=== PATIENT | male | born 1975 | race Caucasian/White ===

== ENCOUNTER 2017-09-24 10:59 | Inpatient (IN) | payer OTHER ==
[2017-09-24] MEDS ORDERED: Albuterol/Ipratropium 3.0-0.5 MG/3 ML Neb Soln NEB ONE (11:13)
--- NOTE | 2017-09-24 11:20 | EDM.PDOC ---
ED HPI GENERAL MEDICAL PROBLEM - General Chief Complaint: Respiratory Problem Stated Complaint: SHORTNESS OF BREATHE, COUGH Time Seen by Provider: 09/24/17 11:15 Source of Information: Reports: Patient History Limitations: Reports: No Limitations - History of Present Illness INITIAL COMMENTS - FREE TEXT/NARRATIVE: Patient is a 42-year-old who states that for the last 2-3 days he's been having productive cough progressively getting worse, yesterday described that he bended over to tie his shoelace and noted that he was lightheaded and felt extremely weak like he was going to pass out, patient admits that his productive cough has become bloody at this point described as rust colo. Onset: Gradual Duration: Day(s):, Getting Worse Location: Reports: Chest Quality: Reports: Sharp Severity: Moderate (Worse with coughing) Improves with: Reports: Other (Positioning) Worsens with: Reports: Other (Leaning forward and coughing) Context: Reports: Other Associated Symptoms: Reports: Chest Pain Right Thoracic Pain Score (Numeric/FACES): 5 - Related Data Allergies Allergy/AdvReac Type Severity Reaction Status Date / Time No Known Allergies Allergy Verified 04/30/15 03:13 Home Meds: Home Meds Aspirin [Ecotrin] 81 mg PO DAILY 09/24/17 [History] Lisinopril/Hydrochlorothiazide [Lisinopril-Hctz 20-12.5 mg Tab] 1 each PO DAILY 09/24/17 [History] Metoprolol Tartrate 25 mg PO DAILY 09/24/17 [History] atorvaSTATin [Lipitor] 40 mg PO BEDTIME 09/24/17 [History] Past Medical History - Past Surgical History Other Musculoskeletal Surgeries/Procedures:: Knee Muscle Surgery Social & Family History - Tobacco Use Smoking Status *Q: Current Every Day Smoker Years of Tobacco use: 20 Packs/Tins Daily: 1.5 Second Hand Smoke Exposure: No - Recreational Drug Use Recreational Drug Use: No ED ROS GENERAL - Review of Systems Review Of Systems: See Below Constitutional: Reports: Weakness, Fatigue HEENT: Reports: No Symptoms Respiratory: Reports: Shortness of Breath, Wheezing Cardiovascular: Reports: No Symptoms Endocrine: Reports: No Symptoms GI/Abdominal: Reports: No Symptoms : Reports: No Symptoms Musculoskeletal: Reports: No Symptoms Skin: Reports: No Symptoms Neurological: Reports: No Symptoms Psychiatric: Reports: No Symptoms Hematologic/Lymphatic: Reports: No Symptoms ED EXAM, GENERAL - Physical Exam Exam: See Below Exam Limited By: No Limitations General Appearance: Alert, WD/WN, No Apparent Distress Ears: Normal External Exam, Normal Canal, Hearing Grossly Normal, Normal TMs Ear Exam: Bilateral Ear: Auricle Normal, Canal Normal, TM normal Nose: Normal Inspection, Normal Mucosa, No Blood Throat/Mouth: Normal Inspection, Normal Lips, Normal Teeth, Normal Gums, Normal Oropharynx, Normal Voice, No Airway Compromise Head: Atraumatic, Normocephalic Neck: Normal Inspection, Supple, Non-Tender, Full Range of Motion Respiratory/Chest: No Respiratory Distress, Lungs Clear, Normal Breath Sounds, No Accessory Muscle Use, Chest Non-Tender Cardiovascular: Normal Peripheral Pulses, Regular Rate, Rhythm, No Edema, No Gallop, No JVD, No Murmur, No Rub GI/Abdominal: Normal Bowel Sounds, Soft, Non-Tender, No Organomegaly, No Distention, No Abnormal Bruit, No Mass (Male) Exam: Deferred Rectal (Males) Exam: Deferred Back Exam: Normal Inspection, Full Range of Motion, NT Extremities: Normal Inspection, Normal Range of Motion, Non-Tender, Normal Capillary Refill, No Pedal Edema Neurological: Alert, Oriented, CN II-XII Intact, Normal Cognition, Normal Gait, Normal Reflexes, No Motor/Sensory Deficits Psychiatric: Normal Affect, Normal Mood Course - Vital Signs Last Recorded V/S: Last Vital Signs Temp 97 F 09/24/17 11:00 Pulse 115 H 09/24/17 11:00 Resp 20 09/24/17 11:00 BP 112/91 H 09/24/17 11:00 Pulse Ox 82 L 09/24/17 11:00 - Orders/Labs/Meds Orders: Active Orders 24 hr Category Date Time Status RT Aerosol Therapy [RC] ASDIRECTED Care 09/24/17 11:14 Ordered Albuterol/Ipratropium [DuoNeb 3.0-0.5 MG/3 ML] Med 09/24/17 11:13 Once 3 ml NEB ONETIME ONE Departure - Departure Time of Disposition: 11:42 Disposition: Admitted As Inpatient 66 Clinical Impression: Pneumonia, COPD (chronic obstructive pulmonary disease) - Discharge Information Referrals: Pilo Srinivasan PA [Primary Care Provider] - Care Plan Goals: Patient will be admitted to the hospital for antibiotic and steroid therapy. Please use ER note as H&P - Problem List & Annotations (1) Pneumonia SNOMED Code(s): 959595975 Code(s): J18.9 - PNEUMONIA, UNSPECIFIED ORGANISM Status: Acute Annotation /Comment:: Patient will be admitted for antibiotic therapy at this time has been hypoxic with oxygen in the low 80s does not improve with albutero Qualifiers: Pneumonia type: due to unspecified organism Laterality: bilateral Lung location: lower lobe of lung Qualified Code(s): J18.9 - Pneumonia, unspecified organism (2) Chronic obstructive pulmonary disease with hypoxia SNOMED Code(s): 54156300 Code(s): J44.9 - CHRONIC OBSTRUCTIVE PULMONARY DISEASE, UNSPECIFIED; R09.02 - HYPOXEMIA Status: Acute Annotation/Comment:: Patient has been a smoker for about 15 years has not smoked in the last 4 days will admit because of a hypoxia treat with oxygen, steroids and antibiotics l. - Problem List Review Problem List Initiated/Reviewed/Updated: Yes - My Orders Last 24 Hours: My Active Orders 09/24/17 11:13 Albuterol/Ipratropium [DuoNeb 3.0-0.5 MG/3 ML] 3 ml NEB ONETIME ONE 09/24/17 11:14 RT Aerosol Therapy [RC] ASDIRECTED - Assessment/Plan Last 24 Hours: My Active Orders 09/24/17 11:13 Albuterol/Ipratropium [DuoNeb 3.0-0.5 MG/3 ML] 3 ml NEB ONETIME ONE 09/24/17 11:14 RT Aerosol Therapy [RC] ASDIRECTED
[2017-09-24] MEDS ORDERED: Acetaminophen 325 MG Tab PO PRN (12:00)
[2017-09-24] MEDS: cefTRIAXone 1 GM in Sodium Chloride 0.9% 100 ML IV SCH (12:48)
[2017-09-24] MEDS: methylPREDNISolone Sodium Succinate 125 MG/2 ML SDV IVPUSH SCH ×2 (12:49→17:41)
[2017-09-24] MEDS ORDERED: Sodium Chloride 0.9% 10 ML Syringe FLUSH PRN (12:57)
[2017-09-24] MEDS: Azithromycin 500 MG in Sodium Chloride 0.9% 250 ML IV SCH (13:24)
[2017-09-24] MEDS: Sodium Chloride 0.9% 10 ML Syringe FLUSH PRN ×2 (13:24→17:42)
[2017-09-24] MEDS: atorvaSTATin 40 MG Tab PO SCH (19:58)
[2017-09-24] MEDS: Albuterol/Ipratropium 3.0-0.5 MG/3 ML Neb Soln NEB PRN (20:16)
[2017-09-25] MEDS: cefTRIAXone 1 GM in Sodium Chloride 0.9% 100 ML IV SCH ×2 (00:04→11:26)
[2017-09-25] MEDS: methylPREDNISolone Sodium Succinate 125 MG/2 ML SDV IVPUSH SCH ×4 (00:04→17:37)
[2017-09-25] MEDS: Temazepam 15 MG Cap PO PRN (00:04)
[2017-09-25] MEDS: Sodium Chloride 0.9% 10 ML Syringe FLUSH PRN ×4 (00:06→17:37)
[2017-09-25] MEDS: Hydrochlorothiazide 25 MG Tab PO SCH (07:35)
[2017-09-25] MEDS: Enoxaparin 40 MG/0.4 ML Syringe SUBCUT SCH (07:35)
[2017-09-25] MEDS: Aspirin 81 MG Tab.EC PO SCH (07:35)
[2017-09-25] MEDS: Lisinopril 20 MG Tab PO SCH (07:35)
[2017-09-25 07:36] LABS: CHLORIDE,CL 99 mmol/L (98-107); SODIUM,NA 138 mmol/L (136-145)
[2017-09-25] MEDS: Metoprolol Tartrate 25 MG Tab PO SCH (07:39)
[2017-09-25] MEDS ORDERED: Non-Formulary Medication 1 Each (Lisinopril/Hydrochlorothiazide [Lisinopril-Hctz 20-12.5 M PO SCH (08:00)
--- NOTE | 2017-09-25 11:48 | PCM.PN ---
- General Info Date of Service: 09/25/17 Functional Status: Reports: Pain Controlled, Tolerating Diet, Ambulating - Review of Systems General: Reports: Fatigue HEENT: Reports: No Symptoms Pulmonary: Reports: Shortness of Breath, Wheezing Cardiovascular: Reports: No Symptoms Gastrointestinal: Reports: No Symptoms Genitourinary: Reports: No Symptoms Musculoskeletal: Reports: No Symptoms Skin: Reports: No Symptoms Neurological: Reports: No Symptoms Psychiatric: Reports: No Symptoms - Patient Data Vitals - Most Recent: Last Vital Signs Temp 97.5 F 09/25/17 08:00 Pulse 118 H 09/25/17 08:00 Resp 20 09/25/17 08:00 BP 139/98 H 09/25/17 08:00 Pulse Ox 88 L 09/25/17 08:00 Weight - Most Recent: 386 lb 0.012 oz I&O - Last 24 Hours: Intake & Output 09/24/17 09/25/17 09/25/17 22:59 06:59 14:59 Intake Total 300 1999 340 Balance 300 1999 340 Lab Results Last 24 Hours: Laboratory Results - last 24 hr 09/25/17 09/25/17 09/25/17 Range/Units 06:40 06:40 09:00 WBC 7.1 (4.0-10.2) K/uL RBC 6.38 H (4.33-5.41) M/uL Hgb 18.7 H* (13.1-16.8) g/dL Hct 56.5 H (39.0-49.0) % MCV 88.6 (84.0-98.0) fL MCH 29.3 (28.2-33.3) pg MCHC 33.1 (31.7-36.0) g/dL RDW 14.2 H (11.2-14.1) % Plt Count 118 L (150-350) K/uL Neut % (Auto) 88.1 H (45.0-80.0) % Lymph % (Auto) 8.8 L (10.0-50.0) % Stone % (Auto) 2.8 (2.0-14.0) % Eos % (Auto) 0.0 (0.0-5.0) % Baso % (Auto) 0.3 (0.0-2.0) % Neut # (Auto) 6.27 (1.40-7.00) K/uL Lymph # (Auto) 0.63 (0.50-3.50) K/uL Stone # (Auto) 0.20 (0.00-1.00) K/uL Eos # (Auto) 0.00 (0.00-0.50) K/uL Baso # (Auto) 0.02 (0.00-0.20) K/uL Sodium 138 (136-145) mmol/L Potassium 5.2 H (3.5-5.1) mmol/L Chloride 99 (98-107) mmol/L Carbon Dioxide 34.9 H (21.0-32.0) mmol/L BUN 10 (7-18) mg/dL Creatinine 0.74 (0.51-1.17) mg/dL Est Cr Clr Drug Dosing 142.93 mL/min Estimated GFR (MDRD) > 60 mL/min Glucose 195 H (74-106) mg/dL Calcium 8.5 (8.5-10.1) mg/dL Therapeutic Phlebotomy Done Kenneth Results Last 24 Hours: Microbiology 09/24/17 11:58 Gram Stain - Final Sputum - Expectorated Med Orders - Current: Current Medications Acetaminophen (Tylenol) 650 mg PO Q4H PRN PRN Reason: analgesia/fever Albuterol/Ipratropium (Duoneb 3.0-0.5 Mg/3 Ml) 3 ml NEB Q2H PRN PRN Reason: Shortness of Breath Last Admin: 09/24/17 20:16 Dose: 3 ml Aspirin (Halfprin) 81 mg PO DAILY [facility] Last Admin: 09/25/17 07:35 Dose: 81 mg Atorvastatin Calcium (Lipitor) 40 mg PO BEDTIME [facility] Last Admin: 09/24/17 19:58 Dose: 40 mg Enoxaparin Sodium (Lovenox) 40 mg SUBCUT DAILY [facility] Last Admin: 09/25/17 07:35 Dose: 40 mg Hydrochlorothiazide (Hydrochlorothiazide) 12.5 mg PO DAILY [facility] Last Admin: 09/25/17 07:35 Dose: 12.5 mg Azithromycin 500 mg/ Sodium (Chloride) 250 mls @ 250 mls/hr IV Q24H [facility] Last Admin: 09/24/17 13:24 Dose: 250 mls/hr Ceftriaxone Sodium 1 gm/ (Sodium Chloride) 100 mls @ 200 mls/hr IV Q12H [facility] Last Admin: 09/25/17 11:26 Dose: 200 mls/hr Lisinopril (Prinivil) 20 mg PO DAILY [facility] Last Admin: 09/25/17 07:35 Dose: 20 mg Methylprednisolone Sodium Succinate (Solu-Medrol) 125 mg IVPUSH Q6H [facility] Last Admin: 09/25/17 11:26 Dose: 125 mg Metoprolol Tartrate (Lopressor) 25 mg PO DAILY [facility] Last Admin: 09/25/17 07:39 Dose: 25 mg Sodium Chloride (Saline Flush) 10 ml FLUSH ASDIRECTED PRN PRN Reason: KEEP DAVE OPEN Last Admin: 09/25/17 11:27 Dose: 10 ml Sodium Chloride (Saline Flush) 10 ml FLUSH ASDIRECTED PRN PRN Reason: Keep Vein Open Temazepam (Restoril) 15 mg PO BEDTIME PRN PRN Reason: Insomnia Last Admin: 09/25/17 00:04 Dose: 15 mg Discontinued Medications Albuterol/Ipratropium (Duoneb 3.0-0.5 Mg/3 Ml) 3 ml NEB ONETIME ONE Stop: 09/24/17 11:14 Last Admin: 09/24/17 11:20 Dose: 3 ml Non-Formulary Medication (Lisinopril/Hydrochlorothiazide [Lisinopril-Hctz 20- 12.5 Mg Tab]) 1 each PO DAILY [facility] - Exam Quality Assessment: Supplemental Oxygen (4 L nasal cannula) General: Alert, Oriented, Cooperative HEENT: Pupils Equal, Pupils Reactive, EOMI, Mucous Membr. Moist/[place] Neck: Supple Lungs: Decreased Breath Sounds, Wheezing (Improving) Cardiovascular: Regular Rate, Regular Rhythm, Tachycardia GI/Abdominal Exam: Normal Bowel Sounds, Soft, Non-Tender, No Organomegaly, No Distention, No Abnormal Bruit, No Mass, Pelvis Stable (Male) Exam: Deferred Back Exam: Normal Inspection, Full Range of Motion Extremities: Normal Inspection, Normal Range of Motion, Non-Tender, No Pedal Edema, Normal Capillary Refill Skin: Warm, Dry, Intact Neurological: No New Focal Deficit Psy/Mental Status: Alert, Normal Affect, Normal Mood - Problem List & Annotations (1) Pneumonia SNOMED Code(s): 182820674 Code(s): J18.9 - PNEUMONIA, UNSPECIFIED ORGANISM Status: Acute Current Visit: Yes Qualifiers: Pneumonia type: due to unspecified organism Laterality: bilateral Lung location: lower lobe of lung Qualified Code(s): J18.9 - Pneumonia, unspecified organism Annotation/Comment:: We'll continue antibiotics as ordered we'll decrease the Solu-Medrol and encourage incentive spirometry chest x-ray showed some improvement (2) Chronic obstructive pulmonary disease with hypoxia SNOMED Code(s): 56264308 Code(s): J44.9 - CHRONIC OBSTRUCTIVE PULMONARY DISEASE, UNSPECIFIED; R09.02 - HYPOXEMIA Status: Acute Current Visit: Yes Annotation/Comment:: Patient has been a smoker for about 15 years has not smoked in the last 4 days will admit because of a hypoxia treat with oxygen, steroids and antibiotics l. (3) Thrombocytopenia SNOMED Code(s): 600716112 Code(s): D69.6 - THROMBOCYTOPENIA, UNSPECIFIED Status: Acute Current Visit: Yes (4) Polycythemia vera SNOMED Code(s): 881794736 Code(s): D45 - POLYCYTHEMIA VERA Status: Acute Current Visit: Yes Annotation/Comment:: Patient's hemoglobin of 18.7 we'll go ahead and do a phlebotomy of one unit recheck hemoglobin after worse start him on aspirin a day once patient is better we will go ahead and refer him to Hemoccult, a hematology for possible bone marrow we will do a blood smear with the next blood draw (5) Polycythemia SNOMED Code(s): 100317099 Code(s): D75.1 - SECONDARY POLYCYTHEMIA Status: Acute Current Visit: Yes Annotation/Comment:: Once patient is stable will refer him to oncology hematology for workup - Problem List Review Problem List Initiated/Reviewed/Updated: Yes - My Orders Last 24 Hours: My Active Orders 09/24/17 11:41 Oxygen Therapy Adult [Oxygen Therapy, ED] [RC] ASDIRECTED 09/24/17 11:46 Patient Status [ADT] Routine Ambulate [RC] ASDIRECTED Bedrest Bathroom Privileges [RC] ASDIRECTED May Shower [RC] ASDIRECTED Up With Assistance [RC] ASDIRECTED Up ad Laura [RC] ASDIRECTED Up to Chair [RC] ASDIRECTED Vital Signs [RC] Q4HR DVT/VTE Prophylaxis Reflex [OM.PC] Routine 09/24/17 11:49 Oxygen Therapy [RC] 2300 Pulse Oximetry [RC] .PRN 09/24/17 11:50 Antiembolic Devices [RC] .Routine VTE/DVT Education [RC] PER UNIT ROUTINE 09/24/17 11:52 Code Status [Resuscitation Status] Routine 09/24/17 11:58 RT Aerosol Therapy [RC] .PRN CULTURE SPUTUM + SMEAR [RM] Routine Blood Culture x2 Reflex Set [OM.PC] Stat 09/24/17 12:00 Acetaminophen [Tylenol] 650 mg PO Q4H PRN Albuterol/Ipratropium [DuoNeb 3.0-0.5 MG/3 ML] 3 ml NEB Q2H PRN cefTRIAXone [Rocephin] 1 gm Sodium Chloride 0.9% [Normal Saline] 100 ml IV Q12H methylPREDNISolone Sod Succ [Solu-MEDROL] 125 mg IVPUSH Q6H 09/24/17 12:30 CULTURE BLOOD [BC] Stat 09/24/17 12:40 CULTURE BLOOD [BC] Stat 09/24/17 12:49 Sodium Chloride 0.9% [Saline Flush] 10 ml FLUSH ASDIRECTED PRN 09/24/17 12:57 Peripheral IV Care [RC] 08,20 Sodium Chloride 0.9% [Saline Flush] 10 ml FLUSH ASDIRECTED PRN Peripheral IV Insertion Adult [OM.PC] Routine 09/24/17 13:00 Azithromycin [Zithromax] 500 mg Sodium Chloride 0.9% [Normal Saline] 250 ml IV Q24H 09/24/17 16:26 IS (RT) [RT Incentive Spirometry] [RC] Q2HR 09/24/17 20:00 atorvaSTATin [Lipitor] 40 mg PO BEDTIME 09/24/17 23:07 Temazepam [Restoril] 15 mg PO BEDTIME PRN 09/24/17 Lunch 2 Gram Sodium Diet [DIET] 09/25/17 08:00 Aspirin [Halfprin] 81 mg PO DAILY Enoxaparin [Lovenox] 40 mg SUBCUT DAILY Hydrochlorothiazide 12.5 mg PO DAILY Lisinopril [Prinivil] 20 mg PO DAILY Metoprolol Tartrate [Lopressor] 25 mg PO DAILY - Plan Plan:: See above
[2017-09-25] MEDS: Azithromycin 500 MG in Sodium Chloride 0.9% 250 ML IV SCH (12:47)
[2017-09-25] MEDS: atorvaSTATin 40 MG Tab PO SCH (22:00)
[2017-09-26] MEDS: cefTRIAXone 1 GM in Sodium Chloride 0.9% 100 ML IV SCH ×2 (01:22→11:40)
[2017-09-26] MEDS: methylPREDNISolone Sodium Succinate 125 MG/2 ML SDV IVPUSH SCH ×3 (01:22→11:41)
[2017-09-26] MEDS: Sodium Chloride 0.9% 10 ML Syringe FLUSH PRN ×6 (01:22→20:33)
[2017-09-26] MEDS: Albuterol/Ipratropium 3.0-0.5 MG/3 ML Neb Soln NEB PRN ×4 (04:57→20:34)
[2017-09-26] MEDS: Aspirin 81 MG Tab.EC PO SCH (08:40)
[2017-09-26] MEDS: Hydrochlorothiazide 25 MG Tab PO SCH (08:40)
[2017-09-26] MEDS: Metoprolol Tartrate 25 MG Tab PO SCH (08:41)
[2017-09-26] MEDS: Lisinopril 20 MG Tab PO SCH (08:42)
[2017-09-26] MEDS: Enoxaparin 40 MG/0.4 ML Syringe SUBCUT SCH (08:43)
--- NOTE | 2017-09-26 12:08 | PCM.PN ---
- General Info Date of Service: 09/26/17 Admission Dx/Problem (Free Text): Shortness of Breath. Functional Status: Reports: Tolerating Diet - Review of Systems General: Reports: No Symptoms HEENT: Reports: No Symptoms Pulmonary: Reports: Shortness of Breath Cardiovascular: Reports: No Symptoms Gastrointestinal: Reports: No Symptoms Genitourinary: Reports: No Symptoms Musculoskeletal: Reports: No Symptoms Skin: Reports: No Symptoms Neurological: Reports: No Symptoms Psychiatric: Reports: No Symptoms - Patient Data Vitals - Most Recent: Last Vital Signs Temp 98.3 F 09/26/17 07:28 Pulse 118 H 09/26/17 08:41 Resp 18 09/26/17 07:28 BP 120/78 09/26/17 08:41 Pulse Ox 92 L 09/26/17 07:28 Weight - Most Recent: 386 lb 0.012 oz I&O - Last 24 Hours: Intake & Output 09/25/17 09/26/17 09/26/17 22:59 06:59 14:59 Intake Total 240 200 Balance 240 200 Lab Results Last 24 Hours: Laboratory Results - last 24 hr 09/25/17 09/25/17 Range/Units 06:40 15:50 WBC 7.2 14.6 H (3.9-11.3) x10-3 ul RBC 6.48 H 5.87 H (4.52-5.90) x10-6 ul Hgb 18.6 H 17.5 H (14.0-18.0) gm/dL Hct 56.4 H 52.0 H (42.0-52.0) % MCV 87 88.6 (83-99) fL MCH 28.8 29.8 (28.0-32.0) pg MCHC 33.0 33.7 (32.0-36.0) g/dL RDW 13.8 13.8 (11.2-15.2) Plt Count 124 L 148 L (150-400) x10-3 ul Neut % (Auto) 88.8 H (45.0-80.0) % Lymph % (Auto) 6.9 L (10.0-50.0) % [place] % (Auto) 4.0 (2.0-14.0) % Eos % (Auto) 0.0 (0.0-5.0) % Baso % (Auto) 0.3 (0.0-2.0) % Neut # (Auto) 12.97 H (1.40-7.00) K/uL Lymph # (Auto) 1.01 (0.50-3.50) K/uL [place] # (Auto) 0.59 (0.00-1.00) K/uL Eos # (Auto) 0.00 (0.00-0.50) K/uL Baso # (Auto) 0.04 (0.00-0.20) K/uL Neutrophils % (Manual) 50 % Band Neuts % (Manual) 39 % Lymphocytes % (Manual) 9 % Monocytes % (Manual) 2 % Eosinophils % (Manual) 0 % Basophils % (Manual) 0 % Neutrophils # (Manual) 3.60 (1.80-7.00) x10-3 ul Band Neutrophils # Man 2.81 H (0.00-0.70) x10-3 ul Lymphocytes # (Manual) 0.65 L (1.00-4.80) x10-3 ul Monocytes # (Manual) 0.14 (0.00-0.80) x10-3 ul Eosinophils # (Manual) 0.00 (0.00-0.45) x10-3 ul Basophils # (Manual) 0.00 (0.00-0.20) x10-3 ul RBC/WBC/PLT Morphology Abnormal Vacuolated Neuts Seen Platelet Estimate Mild dec Smear Path Review Path rpt Absolute Retic 0.1224 H (0.0200-0.1000) Percent Retic 1.9 (0.3-2.2) % Kenneth Results Last 24 Hours: Microbiology 09/24/17 12:40 Aerobic Blood Culture - Preliminary Blood - Venous - Lab Draw NO GROWTH AFTER 1 DAY Anaerobic Blood Culture - Preliminary NO GROWTH AFTER 1 DAY 09/24/17 12:30 Aerobic Blood Culture - Preliminary Blood - Venous NO GROWTH AFTER 1 DAY Anaerobic Blood Culture - Preliminary NO GROWTH AFTER 1 DAY Med Orders - Current: Current Medications Acetaminophen (Tylenol) 650 mg PO Q4H PRN PRN Reason: analgesia/fever Albuterol/Ipratropium (Duoneb 3.0-0.5 Mg/3 Ml) 3 ml NEB Q2H PRN PRN Reason: Shortness of Breath Last Admin: 09/26/17 11:46 Dose: 3 ml Aspirin (Halfprin) 81 mg PO DAILY [facility] Last Admin: 09/26/17 08:40 Dose: 81 mg Atorvastatin Calcium (Lipitor) 40 mg PO BEDTIME [facility] Last Admin: 09/25/17 22:00 Dose: 40 mg Enoxaparin Sodium (Lovenox) 40 mg SUBCUT DAILY [facility] Last Admin: 09/26/17 08:43 Dose: 40 mg Hydrochlorothiazide (Hydrochlorothiazide) 12.5 mg PO DAILY [facility] Last Admin: 09/26/17 08:40 Dose: 12.5 mg Azithromycin 500 mg/ Sodium (Chloride) 250 mls @ 250 mls/hr IV Q24H [facility] Last Admin: 09/25/17 12:47 Dose: 250 mls/hr Ceftriaxone Sodium 1 gm/ (Sodium Chloride) 100 mls @ 200 mls/hr IV Q12H [facility] Last Admin: 09/26/17 11:40 Dose: 200 mls/hr Lisinopril (Prinivil) 20 mg PO DAILY [facility] Last Admin: 09/26/17 08:42 Dose: 20 mg Methylprednisolone Sodium Succinate (Solu-Medrol) 125 mg IVPUSH Q6H [facility] Last Admin: 09/26/17 11:41 Dose: 125 mg Metoprolol Tartrate (Lopressor) 25 mg PO DAILY [facility] Last Admin: 09/26/17 08:41 Dose: 25 mg Sodium Chloride (Saline Flush) 10 ml FLUSH ASDIRECTED PRN PRN Reason: KEEP DAVE OPEN Last Admin: 09/26/17 04:57 Dose: 10 ml Sodium Chloride (Saline Flush) 10 ml FLUSH ASDIRECTED PRN PRN Reason: Keep Vein Open Last Admin: 09/25/17 12:47 Dose: 10 ml Temazepam (Restoril) 15 mg PO BEDTIME PRN PRN Reason: Insomnia Last Admin: 09/25/17 00:04 Dose: 15 mg Discontinued Medications Albuterol/Ipratropium (Duoneb 3.0-0.5 Mg/3 Ml) 3 ml NEB ONETIME ONE Stop: 09/24/17 11:14 Last Admin: 09/24/17 11:20 Dose: 3 ml Non-Formulary Medication (Lisinopril/Hydrochlorothiazide [Lisinopril-Hctz 20- 12.5 Mg Tab]) 1 each PO DAILY [facility] - Exam Quality Assessment: Supplemental Oxygen General: Alert, Oriented, Cooperative HEENT: Pupils Equal, Pupils Reactive, EOMI, Mucous Membr. Moist/[place] Neck: Supple Lungs: Decreased Breath Sounds, Wheezing Cardiovascular: Regular Rate, Regular Rhythm GI/Abdominal Exam: Normal Bowel Sounds, Soft, Non-Tender, No Organomegaly, No Distention, No Abnormal Bruit, No Mass, Pelvis Stable (Male) Exam: No Hernia, Normal Inspection, Normal Prostate, Circumcised Back Exam: Normal Inspection, Full Range of Motion Extremities: Normal Inspection, Normal Range of Motion, Non-Tender, No Pedal Edema, Normal Capillary Refill Skin: Warm, Dry, Intact Wound/Incisions: Healing Well Neurological: No New Focal Deficit Psy/Mental Status: Alert, Normal Affect, Normal Mood - Problem List & Annotations (1) Pneumonia SNOMED Code(s): 197179204 Code(s): J18.9 - PNEUMONIA, UNSPECIFIED ORGANISM Status: Acute Current Visit: Yes Qualifiers: Pneumonia type: due to unspecified organism Laterality: bilateral Lung location: lower lobe of lung Qualified Code(s): J18.9 - Pneumonia, unspecified organism Annotation/Comment:: We'll continue the antibiotics and steroids as order (2) Chronic obstructive pulmonary disease with hypoxia SNOMED Code(s): 64544433 Code(s): J44.9 - CHRONIC OBSTRUCTIVE PULMONARY DISEASE, UNSPECIFIED; R09.02 - HYPOXEMIA Status: Acute Current Visit: Yes Annotation/Comment:: Patient has been a smoker for about 15 years has not smoked in the last 4 days will admit because of a hypoxia treat with oxygen, steroids and antibiotics l. (3) Thrombocytopenia SNOMED Code(s): 546978574 Code(s): D69.6 - THROMBOCYTOPENIA, UNSPECIFIED Status: Acute Current Visit: Yes (4) Polycythemia vera SNOMED Code(s): 333410989 Code(s): D45 - POLYCYTHEMIA VERA Status: Acute Current Visit: Yes Annotation/Comment:: Patient's hemoglobin of 18.7 we'll go ahead and do a phlebotomy of one unit recheck hemoglobin after worse start him on aspirin a day once patient is better we will go ahead and refer him to Hemoccult, a hematology for possible bone marrow we will do a blood smear with the next blood draw (5) Polycythemia SNOMED Code(s): 565621294 Code(s): D75.1 - SECONDARY POLYCYTHEMIA Status: Acute Current Visit: Yes - Problem List Review Problem List Initiated/Reviewed/Updated: Yes - My Orders Last 24 Hours: My Active Orders 09/25/17 12:00 Chest 2V [CR] AM - Plan Plan:: See above
[2017-09-26] MEDS ORDERED: Famotidine 20 MG/2 ML SDV IV SCH (12:30)
[2017-09-26] MEDS: Azithromycin 500 MG in Sodium Chloride 0.9% 250 ML IV SCH (13:09)
[2017-09-26] MEDS: methylPREDNISolone Sodium Succinate 40 MG/1 ML SDV IVPUSH SCH (17:12)
[2017-09-26] MEDS: atorvaSTATin 40 MG Tab PO SCH (20:32)
[2017-09-26] MEDS: Famotidine 20 MG/2 ML SDV IVPUSH SCH (20:33)
[2017-09-27] MEDS: methylPREDNISolone Sodium Succinate 40 MG/1 ML SDV IVPUSH SCH ×3 (00:37→11:19)
[2017-09-27] MEDS: cefTRIAXone 1 GM in Sodium Chloride 0.9% 100 ML IV SCH ×2 (00:41→11:20)
[2017-09-27] MEDS: Temazepam 15 MG Cap PO PRN (00:47)
[2017-09-27] MEDS: Sodium Chloride 0.9% 10 ML Syringe FLUSH PRN ×2 (05:23→21:03)
[2017-09-27] MEDS: Metoprolol Tartrate 25 MG Tab PO SCH (07:31)
[2017-09-27] MEDS: Enoxaparin 40 MG/0.4 ML Syringe SUBCUT SCH (07:31)
[2017-09-27] MEDS: Hydrochlorothiazide 25 MG Tab PO SCH (07:32)
[2017-09-27] MEDS: Aspirin 81 MG Tab.EC PO SCH (07:32)
[2017-09-27] MEDS: Famotidine 20 MG/2 ML SDV IVPUSH SCH ×2 (07:33→21:02)
[2017-09-27] MEDS: Lisinopril 20 MG Tab PO SCH (07:33)
[2017-09-27 07:39] LABS: CHLORIDE,CL 98 mmol/L (98-107); SODIUM,NA 137 mmol/L (136-145)
[2017-09-27] MEDS ORDERED: Azithromycin 250 MG Tab PO SCH (12:00)
--- NOTE | 2017-09-27 13:28 | PCM.PN ---
- General Info Date of Service: 09/27/17 Admission Dx/Problem (Free Text): Shortness of Breath. Functional Status: Reports: Other (Hypoxia) - Review of Systems General: Reports: Other (Shortness of breath) HEENT: Reports: No Symptoms Pulmonary: Reports: Shortness of Breath, Cough, Sputum Cardiovascular: Reports: No Symptoms Gastrointestinal: Reports: No Symptoms Genitourinary: Reports: No Symptoms Musculoskeletal: Reports: No Symptoms Skin: Reports: No Symptoms Neurological: Reports: No Symptoms Psychiatric: Reports: No Symptoms - Patient Data Vitals - Most Recent: Last Vital Signs Temp 98.2 F 09/27/17 12:00 Pulse 96 09/27/17 12:00 Resp 20 09/27/17 07:35 BP 136/93 H 09/27/17 12:00 Pulse Ox 92 L 09/27/17 12:00 Weight - Most Recent: 386 lb 0.012 oz I&O - Last 24 Hours: Intake & Output 09/26/17 09/27/17 09/27/17 22:59 06:59 14:59 Intake Total 700 600 Balance 700 600 Lab Results Last 24 Hours: Laboratory Results - last 24 hr 09/27/17 Range/Units 07:00 Sodium 137 (136-145) mmol/L Potassium 4.5 (3.5-5.1) mmol/L Chloride 98 (98-107) mmol/L Carbon Dioxide 37.1 H (21.0-32.0) mmol/L BUN 15 (7-18) mg/dL Creatinine 0.70 (0.51-1.17) mg/dL Est Cr Clr Drug Dosing 151.10 mL/min Estimated GFR (MDRD) > 60 mL/min Glucose 274 H* (74-106) mg/dL Calcium 8.4 L (8.5-10.1) mg/dL Kenneth Results Last 24 Hours: Microbiology 09/24/17 11:58 Gram Stain - Final Sputum - Expectorated Sputum Culture - Preliminary 09/24/17 12:40 Aerobic Blood Culture - Preliminary Blood - Venous - Lab Draw NO GROWTH AFTER 3 DAYS Anaerobic Blood Culture - Preliminary NO GROWTH AFTER 3 DAYS 09/24/17 12:30 Aerobic Blood Culture - Preliminary Blood - Venous NO GROWTH AFTER 3 DAYS Anaerobic Blood Culture - Preliminary NO GROWTH AFTER 3 DAYS Med Orders - Current: Current Medications Acetaminophen (Tylenol) 650 mg PO Q4H PRN PRN Reason: analgesia/fever Last Admin: 09/26/17 16:09 Dose: 650 mg Albuterol/Ipratropium (Duoneb 3.0-0.5 Mg/3 Ml) 3 ml NEB Q2H PRN PRN Reason: Shortness of Breath Last Admin: 09/26/17 20:34 Dose: 3 ml Aspirin (Halfprin) 81 mg PO DAILY [facility] Last Admin: 09/27/17 07:32 Dose: 81 mg Atorvastatin Calcium (Lipitor) 40 mg PO BEDTIME [facility] Last Admin: 09/26/17 20:32 Dose: 40 mg Azithromycin (Zithromax) 500 mg PO DAILY@1200 [facility] Stop: 09/29/17 12:01 Last Admin: 09/27/17 12:27 Dose: 500 mg Enoxaparin Sodium (Lovenox) 40 mg SUBCUT DAILY [facility] Last Admin: 09/27/17 07:31 Dose: 40 mg Famotidine (Pepcid) 20 mg IVPUSH Q12HR [facility] Last Admin: 09/27/17 07:33 Dose: 20 mg Hydrochlorothiazide (Hydrochlorothiazide) 12.5 mg PO DAILY [facility] Last Admin: 09/27/17 07:32 Dose: 12.5 mg Ceftriaxone Sodium 1 gm/ (Sodium Chloride) 100 mls @ 200 mls/hr IV Q12H [facility] Last Admin: 09/27/17 11:20 Dose: 200 mls/hr Methylprednisolone Sodium Succinate 40 mg/ Sodium Chloride 100.32 mls @ 100 mls /hr IV Q6H [facility] Lisinopril (Prinivil) 20 mg PO DAILY [facility] Last Admin: 09/27/17 07:33 Dose: 20 mg Metoprolol Tartrate (Lopressor) 25 mg PO DAILY [facility] Last Admin: 09/27/17 07:31 Dose: 25 mg Sodium Chloride (Saline Flush) 10 ml FLUSH ASDIRECTED PRN PRN Reason: KEEP DAVE OPEN Last Admin: 09/27/17 05:23 Dose: 10 ml Sodium Chloride (Saline Flush) 10 ml FLUSH ASDIRECTED PRN PRN Reason: Keep Vein Open Last Admin: 09/25/17 12:47 Dose: 10 ml Temazepam (Restoril) 15 mg PO BEDTIME PRN PRN Reason: Insomnia Last Admin: 09/27/17 00:47 Dose: 15 mg Discontinued Medications Albuterol/Ipratropium (Duoneb 3.0-0.5 Mg/3 Ml) 3 ml NEB ONETIME ONE Stop: 09/24/17 11:14 Last Admin: 09/24/17 11:20 Dose: 3 ml Famotidine (Pepcid) 20 mg IV Q12HR [facility] Azithromycin 500 mg/ Sodium (Chloride) 250 mls @ 250 mls/hr IV Q24H [facility] Last Admin: 09/26/17 13:09 Dose: 250 mls/hr Methylprednisolone Sodium Succinate (Solu-Medrol) 125 mg IVPUSH Q6H [facility] Last Admin: 09/26/17 11:41 Dose: 125 mg Methylprednisolone Sodium Succinate (Solu-Medrol) 40 mg IVPUSH Q6H [facility] Last Admin: 09/27/17 11:19 Dose: 40 mg Non-Formulary Medication (Lisinopril/Hydrochlorothiazide [Lisinopril-Hctz 20- 12.5 Mg Tab]) 1 each PO DAILY [facility] - Exam Quality Assessment: Supplemental Oxygen General: Alert, Oriented HEENT: Pupils Equal, Pupils Reactive, EOMI, Mucous Membr. Moist/[place] Neck: Supple Lungs: Clear to Auscultation, Decreased Breath Sounds, Wheezing (Expiratory) Cardiovascular: Regular Rate, Regular Rhythm GI/Abdominal Exam: Normal Bowel Sounds, Soft, Non-Tender, No Organomegaly, No Distention, No Abnormal Bruit, No Mass, Pelvis Stable (Male) Exam: Deferred Back Exam: Normal Inspection, Full Range of Motion Extremities: Normal Inspection, Normal Range of Motion, Non-Tender, No Pedal Edema, Normal Capillary Refill Skin: Warm, Dry, Intact Neurological: No New Focal Deficit Psy/Mental Status: Alert, Normal Affect, Normal Mood - Problem List & Annotations (1) Pneumonia SNOMED Code(s): 840617899 Code(s): J18.9 - PNEUMONIA, UNSPECIFIED ORGANISM Status: Acute Current Visit: Yes Qualifiers: Pneumonia type: due to unspecified organism Laterality: bilateral Lung location: lower lobe of lung Qualified Code(s): J18.9 - Pneumonia, unspecified organism Annotation/Comment:: We'll continue antibiotics as ordered we'll decrease the Solu-Medrol and encourage incentive spirometry chest x-ray showed some improvement (2) Chronic obstructive pulmonary disease with hypoxia SNOMED Code(s): 81471979 Code(s): J44.9 - CHRONIC OBSTRUCTIVE PULMONARY DISEASE, UNSPECIFIED; R09.02 - HYPOXEMIA Status: Acute Current Visit: Yes Annotation/Comment:: Patient has been a smoker for about 15 years has not smoked in the last 4 days will admit because of a hypoxia treat with oxygen, steroids and antibiotics l. (3) Thrombocytopenia SNOMED Code(s): 243715404 Code(s): D69.6 - THROMBOCYTOPENIA, UNSPECIFIED Status: Acute Current Visit: Yes (4) Polycythemia vera SNOMED Code(s): 839180516 Code(s): D45 - POLYCYTHEMIA VERA Status: Acute Current Visit: Yes Annotation/Comment:: Patient's hemoglobin of 18.7 we'll go ahead and do a phlebotomy of one unit recheck hemoglobin after worse start him on aspirin a day once patient is better we will go ahead and refer him to Hemoccult, a hematology for possible bone marrow we will do a blood smear with the next blood draw (5) Polycythemia SNOMED Code(s): 795256821 Code(s): D75.1 - SECONDARY POLYCYTHEMIA Status: Acute Current Visit: Yes Annotation/Comment:: Once patient is stable will refer him to oncology hematology for workup - Problem List Review Problem List Initiated/Reviewed/Updated: Yes - My Orders Last 24 Hours: My Active Orders 09/26/17 12:30 Famotidine [Pepcid] 20 mg IVPUSH Q12HR 09/27/17 12:00 Azithromycin [Zithromax] 500 mg PO DAILY@1200 09/27/17 13:30 methylPREDNISolone Sod Succ [Solu-MEDROL] 40 mg Sodium Chloride 0.9% [Normal Saline] 100 ml IV Q6H - Plan Plan:: See above
[2017-09-27] MEDS ORDERED: methylPREDNISolone Sod Succ 40 MG in Sodium Chloride 0.9% 100 ML IV SCH (13:30)
[2017-09-27] MEDS: atorvaSTATin 40 MG Tab PO SCH (21:02)
[2017-09-27] MEDS: Albuterol/Ipratropium 3.0-0.5 MG/3 ML Neb Soln NEB PRN (21:02)
[2017-09-28] MEDS ORDERED: methylPREDNISolone Sodium Succinate 40 MG/1 ML SDV IVPUSH SCH
[2017-09-28] MEDS: cefTRIAXone 1 GM in Sodium Chloride 0.9% 100 ML IV SCH (00:04)
[2017-09-28] MEDS: Lisinopril 20 MG Tab PO SCH (07:40)
[2017-09-28] MEDS: Metoprolol Tartrate 25 MG Tab PO SCH (07:41)
[2017-09-28] MEDS: Hydrochlorothiazide 25 MG Tab PO SCH (07:41)
[2017-09-28] MEDS: Famotidine 20 MG/2 ML SDV IVPUSH SCH (07:42)
[2017-09-28] MEDS: Aspirin 81 MG Tab.EC PO SCH (07:42)
[2017-09-28] MEDS: Enoxaparin 40 MG/0.4 ML Syringe SUBCUT SCH (07:43)
[2017-09-28] MEDS: Sodium Chloride 0.9% 10 ML Syringe FLUSH PRN (07:43)
[2017-09-28 07:46] VITALS: BP 133/90
[2017-09-28 07:54] LABS: CHLORIDE,CL 97 mmol/L (98-107); SODIUM,NA 137 mmol/L (136-145)
--- NOTE | 2017-09-28 09:30 | PCM.DCSUM1 ---
Discharge Summary - Hospital Course Free Text/Narrative:: Patient is a 42-year-old who was admitted to the hospital with shortness of breath diagnosed with pneumonia start on antibiotic patient improved initially but continue hypoxic repeat chest x-rays showed minimal to mild improvement a second diagnosis of polycythemia was done secondary to being at 18.4 phlebotomy done patient symptoms improved today oxygen saturation is in the 80s without oxygen and up to 90s with oxygen I feel that this patient will benefit from a pulmonary consult and a hematology consult will transfer to a center - Discharge Data Discharge Date: 09/28/17 Discharge Disposition: DC/Tfer to [facility] Condition: Fair - Discharge Diagnosis/Problem(s) (1) Pneumonia SNOMED Code(s): 801298131 ICD Code: J18.9 - PNEUMONIA, UNSPECIFIED ORGANISM Status: Acute Priority : High Current Visit: Yes Problem Details: Patient will be transferred to [facility] patient refused adamantly transfer by ambulance note patient advice of the consequences and complications and risks of hypoxia and declined/ refused ambulance transfer at this time in spite of medical awareness patient refused ambulance transfer patient understood risks and consequences at this time Qualifiers: Pneumonia type: due to unspecified organism Laterality: bilateral Lung location: lower lobe of lung Qualified Code(s): J18.9 - Pneumonia, unspecified organism (2) Chronic obstructive pulmonary disease with hypoxia SNOMED Code(s): 97314097 ICD Code: J44.9 - CHRONIC OBSTRUCTIVE PULMONARY DISEASE, UNSPECIFIED; R09.02 - HYPOXEMIA Status: Acute Current Visit: Yes Problem Details: On further history obtaining patient admits to 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 (3) Thrombocytopenia SNOMED Code(s): 127120330 ICD Code: D69.6 - THROMBOCYTOPENIA, UNSPECIFIED Status: Acute Current Visit: Yes (4) Polycythemia vera SNOMED Code(s): 061483255 ICD Code: D45 - POLYCYTHEMIA VERA Status: Acute Current Visit: Yes Problem Details: Patient's hemoglobin of 18.7 we'll go ahead and do a phlebotomy of one unit recheck hemoglobin after worse start him on aspirin a day once patient is better we will go ahead and refer him to Hemoccult, a hematology for possible bone marrow we will do a blood smear with the next blood draw (5) Polycythemia SNOMED Code(s): 778602251 ICD Code: D75.1 - SECONDARY POLYCYTHEMIA Status: Acute Current Visit: Yes Problem Details: Patient will be transferred [facility] oncology will be consulted - Patient Instructions Diet: Heart Healthy Diet Activity: As Tolerated, Cough & Deep Breathe Driving: Do Not Drive - Discharge Plan Home Medications: Home Meds Aspirin [Ecotrin] 81 mg PO DAILY 09/24/17 [History] Lisinopril/Hydrochlorothiazide [Lisinopril-Hctz 20-12.5 mg Tab] 1 each PO DAILY 09/24/17 [History] Metoprolol Tartrate 25 mg PO DAILY 09/24/17 [History] atorvaSTATin [Lipitor] 40 mg PO BEDTIME 09/24/17 [History] Patient Handouts: Ceftriaxone injection, Azithromycin for infusion, Methylprednisolone Solution for Injection, Therapeutic Phlebotomy, Community- Acquired Pneumonia, Adult Forms: ED Department Discharge Referrals: Pilo Srinivasan PA [Primary Care Provider] - - Discharge Summary/Plan Comment DC Time >30 min.: No Discharge Summary/Plan Comment: At this time patient agreed to go to [facility] but refused transfer by ambulance in spite of medical recommendations it was explained to him the risks and benefits including hypoxia which patient understood and accepted the risks of transferring by car It was strongly recommended by myself that he be transferred to a higher level of care to see pulmonology and hematology services I strongly feel that this is a life or situation for this patient if he continues hypoxic the way he was at home prior to this admission - General Info Functional Status: Reports: Incentive Spirometry - Review of Systems HEENT: Reports: No Symptoms Pulmonary: Reports: Shortness of Breath, Cough, Sputum Cardiovascular: Reports: Dyspnea on Exertion Gastrointestinal: Reports: No Symptoms Genitourinary: Reports: No Symptoms Musculoskeletal: Reports: No Symptoms Skin: Reports: No Symptoms Neurological: Reports: No Symptoms Psychiatric: Reports: No Symptoms - Patient Data Vitals - Most Recent: Last Vital Signs Temp 98 F 09/28/17 04:00 Pulse 104 H 09/28/17 07:41 Resp 20 09/28/17 04:00 BP 133/90 09/28/17 07:41 Pulse Ox 92 L 09/28/17 04:00 Weight - Most Recent: 386 lb 0.012 oz I&O - Last 24 hours: Intake & Output 09/27/17 09/28/17 09/28/17 22:59 06:59 14:59 Intake Total 240 200 Balance 240 200 Lab Results - Last 24 hrs: Laboratory Results - last 24 hr 09/28/17 09/28/17 09/28/17 Range/Units 07:10 07:10 07:10 WBC 15.4 H (4.0-10.2) K/uL RBC 6.30 H (4.33-5.41) M/uL Hgb 18.4 H* (13.1-16.8) g/dL Hct 55.5 H (39.0-49.0) % MCV 88.1 (84.0-98.0) fL MCH 29.2 (28.2-33.3) pg MCHC 33.2 (31.7-36.0) g/dL RDW 14.4 H (11.2-14.1) % Plt Count 185 (150-350) K/uL Neut % (Auto) 87.1 H (45.0-80.0) % Lymph % (Auto) 7.9 L (10.0-50.0) % [place] % (Auto) 4.9 (2.0-14.0) % Eos % (Auto) 0.0 (0.0-5.0) % Baso % (Auto) 0.1 (0.0-2.0) % Neut # (Auto) 13.41 H (1.40-7.00) K/uL Lymph # (Auto) 1.21 (0.50-3.50) K/uL [place] # (Auto) 0.76 (0.00-1.00) K/uL Eos # (Auto) 0.00 (0.00-0.50) K/uL Baso # (Auto) 0.02 (0.00-0.20) K/uL D-Dimer, Quantitative < 100 (0-400) ng/mL Sodium 137 (136-145) mmol/L Potassium 4.6 (3.5-5.1) mmol/L Chloride 97 L (98-107) mmol/L Carbon Dioxide 36.9 H (21.0-32.0) mmol/L BUN 17 (7-18) mg/dL Creatinine 0.68 (0.51-1.17) mg/dL Est Cr Clr Drug Dosing 155.54 mL/min Estimated GFR (MDRD) > 60 mL/min Glucose 260 H* (74-106) mg/dL Calcium 8.2 L (8.5-10.1) mg/dL [facility] Results - Last 24 hrs: Microbiology 09/24/17 11:58 Gram Stain - Final Sputum - Expectorated Sputum Culture - Preliminary 09/24/17 12:40 Aerobic Blood Culture - Preliminary Blood - Venous - Lab Draw NO GROWTH AFTER 3 DAYS Anaerobic Blood Culture - Preliminary NO GROWTH AFTER 3 DAYS 09/24/17 12:30 Aerobic Blood Culture - Preliminary Blood - Venous NO GROWTH AFTER 3 DAYS Anaerobic Blood Culture - Preliminary NO GROWTH AFTER 3 DAYS Med Orders - Current: Current Medications Acetaminophen (Tylenol) 650 mg PO Q4H PRN PRN Reason: analgesia/fever Last Admin: 09/26/17 16:09 Dose: 650 mg Albuterol/Ipratropium (Duoneb 3.0-0.5 Mg/3 Ml) 3 ml NEB Q2H PRN PRN Reason: Shortness of Breath Last Admin: 09/27/17 21:02 Dose: 3 ml Aspirin (Halfprin) 81 mg PO DAILY [facility] Last Admin: 09/28/17 07:42 Dose: 81 mg Atorvastatin Calcium (Lipitor) 40 mg PO BEDTIME [facility] Last Admin: 09/27/17 21:02 Dose: 40 mg Azithromycin (Zithromax) 500 mg PO DAILY@1200 [facility] Stop: 09/29/17 12:01 Last Admin: 09/27/17 12:27 Dose: 500 mg Enoxaparin Sodium (Lovenox) 40 mg SUBCUT DAILY [facility] Last Admin: 09/28/17 07:43 Dose: 40 mg Famotidine (Pepcid) 20 mg IVPUSH Q12HR [facility] Last Admin: 09/28/17 07:42 Dose: 20 mg Hydrochlorothiazide (Hydrochlorothiazide) 12.5 mg PO DAILY [facility] Last Admin: 09/28/17 07:41 Dose: 12.5 mg Ceftriaxone Sodium 1 gm/ (Sodium Chloride) 100 mls @ 200 mls/hr IV Q12H [facility] Last Admin: 09/28/17 00:04 Dose: 200 mls/hr Insulin Aspart (Novolog) 0 unit SUBCUT QID [facility] PRN Reason: Protocol Lisinopril (Prinivil) 20 mg PO DAILY [facility] Last Admin: 09/28/17 07:40 Dose: 20 mg Methylprednisolone Sodium Succinate (Solu-Medrol) 40 mg IVPUSH Q12H [facility] Last Admin: 09/28/17 00:04 Dose: 40 mg Metoprolol Tartrate (Lopressor) 25 mg PO DAILY [facility] Last Admin: 09/28/17 07:41 Dose: 25 mg Sodium Chloride (Saline Flush) 10 ml FLUSH ASDIRECTED PRN PRN Reason: KEEP DAVE OPEN Last Admin: 09/28/17 07:43 Dose: 10 ml Sodium Chloride (Saline Flush) 10 ml FLUSH ASDIRECTED PRN PRN Reason: Keep Vein Open Last Admin: 09/25/17 12:47 Dose: 10 ml Temazepam (Restoril) 15 mg PO BEDTIME PRN PRN Reason: Insomnia Last Admin: 09/27/17 00:47 Dose: 15 mg Discontinued Medications Albuterol/Ipratropium (Duoneb 3.0-0.5 Mg/3 Ml) 3 ml NEB ONETIME ONE Stop: 09/24/17 11:14 Last Admin: 09/24/17 11:20 Dose: 3 ml Famotidine (Pepcid) 20 mg IV Q12HR [facility] Azithromycin 500 mg/ Sodium (Chloride) 250 mls @ 250 mls/hr IV Q24H [facility] Last Admin: 09/26/17 13:09 Dose: 250 mls/hr Methylprednisolone Sodium Succinate (Solu-Medrol) 125 mg IVPUSH Q6H [facility] Last Admin: 09/26/17 11:41 Dose: 125 mg Methylprednisolone Sodium Succinate (Solu-Medrol) 40 mg IVPUSH Q6H [facility] Last Admin: 09/27/17 11:19 Dose: 40 mg Non-Formulary Medication (Lisinopril/Hydrochlorothiazide [Lisinopril-Hctz 20- 12.5 Mg Tab]) 1 each PO DAILY [facility] - Exam Quality Assessment: Reports: Supplemental Oxygen General: Reports: Alert, Oriented, Cooperative HEENT: Reports: Pupils Equal, Pupils Reactive, EOMI, Mucous Membr. Moist/[place] Neck: Reports: Supple Lungs: Reports: Clear to Auscultation, Decreased Breath Sounds Cardiovascular: Reports: Regular Rate, Regular Rhythm GI/Abdominal Exam: Normal Bowel Sounds, Soft, Non-Tender, No Organomegaly, No Distention, No Abnormal Bruit, No Mass, Pelvis Stable (Male) Exam: Deferred Rectal (Males) Exam: Deferred Back Exam: Reports: Normal Inspection, Full Range of Motion Extremities: Normal Inspection, Normal Range of Motion, Non-Tender, No Pedal Edema, Normal Capillary Refill Skin: Reports: Warm, Dry, Intact Neurological: Reports: No New Focal Deficit Psy/Mental Status: Reports: Alert, Normal Affect, Normal Mood *Q Meaningful Use (DIS) - VTE *Q VTE Criteria *Q: - Stroke *Q Stroke Criteria *Q: - AMI *Q AMI Criteria *Q:
[2017-09-28] MEDS ORDERED: Insulin Aspart 100 Units/ML 3 ML Pen SUBCUT SCH (12:00)
== END 2017-09-28 11:00 | DRG 195 ==
LOC: LL.ED 10:59 → LL.MS 11:35
PROVIDERS: ADMIT Family Medicine; ATTEND Family Medicine
DX: J18.9 Pneumonia, unspecified organism (principal); J44.9 Chronic obstructive pulmonary disease, unspecified; R09.02 Hypoxemia; R06.02 Shortness of breath; D69.6 Thrombocytopenia, unspecified; D45 Polycythemia vera; F17.200 Nicotine dependence, unspecified, uncomplicated; Z79.82 Long term (current) use of aspirin; Z79.899 Other long term (current) drug therapy
CPT/HCPCS: 36415; 71046; 80048; 80053; 85008; 85025; 85027; 85379; 87040; 87070; 87077; 87186; 87205; 87804; 94640; 99195; 99285; A9270-GY; J0456; J0696; J1650; J2920; J2930; J7050; S0028

== ENCOUNTER 2024-08-14 01:12 | Emergency (ER) | payer BC ==
[2024-08-14] MEDS: Diltiazem 25 MG/5 ML SDV IVPUSH ONE (01:43)
[2024-08-14] MEDS: Sodium Chloride 0.9% 10 ML Syringe FLUSH PRN (01:46)
[2024-08-14 01:52] LABS: BASOPHILS ABSOLUTE AUTO 0.05 K/uL (0.00-0.20); BASOPHILS PERCENT AUTO 0.4 % (0.0-2.0); EOSINOPHILS ABSOLUTE AUTO 0.13 K/uL (0.00-0.50); EOSINOPHILS PERCENT AUTO 1.1 % (0.0-5.0); HEMATOCRIT 50.1 % (39.0-49.0); HEMOGLOBIN 17.9 g/dL (13.1-16.8); IMMATURE GRAN ABSOLUTE AUTO 0.05 10^3/uL (0.00-0.04); IMMATURE GRAN PERCENT AUTO 0.4 % (0.0-0.4); LYMPHOCYTES ABSOLUTE AUTO 3.07 K/uL (0.50-3.50); LYMPHOCYTES PERCENT AUTO 25.6 % (10.0-50.0); MEAN CORPUSCULAR HEMOGLOBIN 29.9 pg (28.2-33.3); MEAN CORPUSCULAR HGB CONC 35.7 g/dL (31.7-36.0); MEAN CORPUSCULAR VOLUME 83.6 fL (84.0-98.0); MONOCYTES ABSOLUTE AUTO 0.89 K/uL (0.00-1.00); MONOCYTES PERCENT AUTO 7.4 % (2.0-14.0); NEUTROPHILS ABSOLUTE AUTO 7.78 K/uL (1.40-7.00); NEUTROPHILS PERCENT AUTO 65.1 % (45.0-80.0); PLATELET COUNT,PLT 147 K/uL (150-350); RED BLOOD CELL COUNT 5.99 M/uL (4.33-5.41); RED CELL DISTRIBUTION WIDTH 12.2 % (11.2-14.1)
[2024-08-14] MEDS: Diltiazem IR 60 MG Tab PO ONE (02:07)
[2024-08-14 02:14] LABS: ALANINE AMINOTRANSFERASE,ALT 41 U/L (12-78); ALBUMIN 3.8 g/dL (3.4-5.0); ALKALINE PHOSPHATASE 64 IU/L (46-116); ASPARTATE AMNIOTRANSFERASE,AST 19 U/L (15-37); BILIRUBIN TOTAL 0.6 mg/dL (0.2-1.0); BLOOD UREA NITROGEN,BUN 10 mg/dL (7-18); CALCIUM 8.8 mg/dL (8.5-10.1); CARBON DIOXIDE,CO2 23.8 mmol/L (21.0-32.0); CHLORIDE,CL 104 mmol/L (98-107); CREATININE 0.96 mg/dL (0.51-1.17); GLUCOSE RANDOM 111 mg/dL (70-99); MAGNESIUM 1.8 mg/dL (1.8-2.4); POTASSIUM,K 3.4 mmol/L (3.5-5.1); SODIUM,NA 141 mmol/L (136-145)
[2024-08-14 02:21] LABS: ANION GAP 16.6 meq/L (7-15); ESTIMATED GFR 97 mL/min (>=60)
[2024-08-14 02:47] VITALS: BP 156/90; PULSE 96
== END 2024-08-14 02:50 | disposition home or self-care (01) ==
LOC: LL.ED 01:12
DX: I47.10 Supraventricular tachycardia, unspecified (principal); I10 Essential (primary) hypertension; F17.200 Nicotine dependence, unspecified, uncomplicated; Z79.82 Long term (current) use of aspirin; Z79.899 Other long term (current) drug therapy
CPT/HCPCS: 36415; 71045; 80053; 83735; 84484; 85025; 93005; 96374; 99285-25; A9270-GY; J3490

== ENCOUNTER 2024-09-20 20:00 | Emergency (ER) | payer BC ==
[2024-09-20 20:50] VITALS: BP 143/91; PULSE 93
== END 2024-09-20 21:07 ==
LOC: LL.ED 20:00
DX: S61.216A Laceration without foreign body of right little finger without damage to nail, initial encounter (principal); I10 Essential (primary) hypertension; F17.210 Nicotine dependence, cigarettes, uncomplicated; Z79.82 Long term (current) use of aspirin; Z79.899 Other long term (current) drug therapy; W45.8XXA Other foreign body or object entering through skin, initial encounter
CPT/HCPCS: 99284

== ENCOUNTER 2024-12-15 09:11 | Emergency (ER) | payer BC ==
[2024-12-15] MEDS ORDERED: Sodium Chloride 0.9% 10 ML Syringe FLUSH PRN (09:22)
[2024-12-15 09:29] LABS: BASOPHILS ABSOLUTE AUTO 0.05 K/uL (0.00-0.20); BASOPHILS PERCENT AUTO 0.4 % (0.0-2.0); EOSINOPHILS ABSOLUTE AUTO 0.17 K/uL (0.00-0.50); EOSINOPHILS PERCENT AUTO 1.4 % (0.0-5.0); IMMATURE GRAN PERCENT AUTO 0.8 % (0.0-0.4); LYMPHOCYTES ABSOLUTE AUTO 2.71 K/uL (0.50-3.50); LYMPHOCYTES PERCENT AUTO 22.2 % (10.0-50.0); MEAN CORPUSCULAR HEMOGLOBIN 30.8 pg (28.2-33.3); MEAN CORPUSCULAR HGB CONC 36.2 g/dL (31.7-36.0); MEAN CORPUSCULAR VOLUME 85.2 fL (84.0-98.0); MONOCYTES ABSOLUTE AUTO 0.97 K/uL (0.00-1.00); NEUTROPHILS PERCENT AUTO 67.2 % (45.0-80.0); PLATELET COUNT,PLT 192 K/uL (150-350); RED BLOOD CELL COUNT 5.87 M/uL (4.33-5.41); RED CELL DISTRIBUTION WIDTH 12.2 % (11.2-14.1); WHITE BLOOD CELL COUNT,WBC 12.2 K/uL (4.0-10.2)
[2024-12-15 09:30] VITALS: PULSE 196
[2024-12-15] MEDS: Amiodarone 150 MG/3 ML SDV IVPUSH ONE (09:32)
[2024-12-15 09:43] LABS: HEMOGLOBIN 18.1 g/dL (13.1-16.8)
[2024-12-15 09:58] LABS: ALBUMIN 3.4 g/dL (3.4-5.0); BILIRUBIN TOTAL 0.3 mg/dL (0.2-1.0); CALCIUM 8.6 mg/dL (8.5-10.1); CREATININE 1.05 mg/dL (0.51-1.17); EST CRCL DRUG DOSING (CG) 90.64 mL/min; MAGNESIUM 1.6 mg/dL (1.8-2.4); POTASSIUM,K 3.8 mmol/L (3.5-5.1); PROTEIN TOTAL,TP 6.8 g/dL (6.4-8.2)
[2024-12-15] MEDS: Magnesium Sulfat/D5W 1GM/100ML 1 GM in Premix Bag 1 BAG IV ONE (10:21)
[2024-12-15] MEDS: AMIODARONE IV ONE (10:28)
[2024-12-15 11:00] VITALS: BP 125/89
== END 2024-12-15 10:40 | disposition left against medical advice (07) ==
LOC: LL.ED 09:11
DX: R00.0 Tachycardia, unspecified (principal); I10 Essential (primary) hypertension; E78.00 Pure hypercholesterolemia, unspecified; F17.200 Nicotine dependence, unspecified, uncomplicated; Z79.82 Long term (current) use of aspirin
CPT/HCPCS: 36415; 71045; 80053; 83605; 83735; 83880; 84484; 85025; 85379; 93005; 96374; 99285; J0282; 93010; 99284